=== PATIENT | female | born 2000 | race Two or more races ===

== ENCOUNTER 2024-05-09 11:01 | Inpatient (IN) | payer OTHER ==
[~2024-05-09] VITALS: Ht 170.2 cm; Wt 88.5 kg
[2024-05-24 09:22] VITALS: BP 123/71
[2024-05-24] MEDS ORDERED: PRENATAL TABLE1 EAC1 PO (10:03)
[2024-05-24] MEDS ORDERED: VITAMIN C500 M6 PO (10:03)
[2024-05-24 10:30] LABS: HEMATOCRIT 40.7 % (36.0-45.00); HEMOGLOBIN 13.6 g/dL (12.0-15.00); MEAN CORPUSCULAR HEMOGLOBIN 30.3 pg (27.00-32.0); MEAN CORPUSCULAR HGB CONC 33.3 g/dl (32.0-36.0); PLATELET COUNT 224 K/uL (150-450); RED BLOOD COUNT 4.47 M/uL (4.00-6.00); RED CELL DISTRIBUTION WIDTH 13.4 % (11.5-14.5)
[2024-05-24] MEDS ORDERED: AMPICILLIN SODIUM 2,000 MG VIAL IV ONE (10:30)
[2024-05-24] MEDS ORDERED: RINGERS SOLUTION,LACTATED 1,000 ML IV SCH (10:30)
[2024-05-24] MEDS ORDERED: OXYTOCIN 500 ML IV SCH (10:30)
[2024-05-24 10:53] LABS: INR < 0.93; PARTIAL THROMBOPLASTIN TIME 24.7 SECONDS (22.0-34.0); PROTHROMBIN TIME 10.2 SECONDS (9.0-11.5)
[2024-05-24 11:09] LABS: ALBUMIN 2.9 gm/dL (3.4-5.0); BILIRUBIN TOTAL 0.36 mg/dL (0.3-1.2); CALCIUM 8.6 mg/dL (8.5-10.1); CREATININE SERUM 0.64 mg/dL (0.55-1.02); GFR 113.06; GLOBULINA 4.1 G/DL (2.4-3.5); POTASSIUM 4.04 mEq/L (3.5-5.1)
[2024-05-24 11:19] VITALS: BP 102/68
[2024-05-24] MEDS ORDERED: AMPICILLIN SODIUM 1,000 MG VIAL IV SCH (13:00)
[2024-05-24] MEDS ORDERED: MORPHINE SULFATE 4 MG/ML VIAL IV STA (13:04)
[2024-05-24 13:13] VITALS: BP 106/66
[2024-05-24] MEDS ORDERED: MORPHINE SULFATE 4 MG/ML CARTRIDGE IV ONE (15:15)
[2024-05-24 15:19] VITALS: BP 142/88
[2024-05-24] MEDS ORDERED: IBUprofen 400 MG TABLET PO PRN (16:15)
[2024-05-24] MEDS ORDERED: OXYTOCIN 1,000 ML IV ONE (16:15)
[2024-05-24] MEDS ORDERED: CHLORHEXIDINE GLUCONATE 120 ML BOTTLE TP SCH (16:15)
[2024-05-24] MEDS ORDERED: DOCUSATE SODIUM 100MG CAP PO SCH (17:00)
[2024-05-24 18:09] VITALS: BP 119/66
[2024-05-25 00:32] VITALS: BP 100/62
[2024-05-25 06:16] LABS: HEMATOCRIT 34.9 % (36.0-45.00); MEAN CELL VOLUME 90.6 fL (80.00-100.00); MEAN CORPUSCULAR HEMOGLOBIN 31.1 pg (27.00-32.0); MEAN CORPUSCULAR HGB CONC 34.3 g/dl (32.0-36.0); PLATELET COUNT 206 K/uL (150-450); RED BLOOD COUNT 3.86 M/uL (4.00-6.00); RED CELL DISTRIBUTION WIDTH 13.5 % (11.5-14.5)
[2024-05-25 08:00] VITALS: BP 112/72
[2024-05-25] MEDS ORDERED: PNV,CALCIUM 72/IRON/FOLIC ACID 1 TAB TABLET PO SCH (09:00)
[2024-05-25 16:00] VITALS: BP 118/60
[2024-05-26 01:04] VITALS: BP 111/73
[2024-05-26 08:54] VITALS: BP 118/58
== END 2024-05-26 13:28 | disposition home or self-care (01) | DRG 807 ==
LOC: LDR 05-24 08:53 → OB/GYN 05-24 14:15
PROVIDERS: Obstetrics & Gynecology Gynecology; ADMIT Obstetrics & Gynecology; ATTEND Obstetrics & Gynecology
PROC: 10E0XZZ Delivery of Products of Conception, External Approach (ICD-10-PCS; principal; 2024-05-24)
PROC: 0KQM0ZZ Repair Perineum Muscle, Open Approach (ICD-10-PCS; 2024-05-24)
PROC: 0UQG7ZZ Repair Vagina, Via Natural or Artificial Opening (ICD-10-PCS; 2024-05-24)
PROC: 0UQMXZZ Repair Vulva, External Approach (ICD-10-PCS; 2024-05-24)
PROC: 4A1HXCZ Monitoring of Products of Conception, Cardiac Rate, External Approach (ICD-10-PCS; 2024-05-24)
DX: O70.1 Second degree perineal laceration during delivery (principal); Z37.0 Single live birth; O71.82 Other specified trauma to perineum and vulva; Z3A.40 40 weeks gestation of pregnancy; Z20.822 Contact with and (suspected) exposure to COVID-19